=== PATIENT | male | born 1990 | race Caucasian/White ===

== ENCOUNTER 2020-11-06 23:38 | Emergency (ER) | payer OTHER | END 2020-11-07 04:00 | disposition home or self-care (01) | LOC: FER 23:38 | DX: S01.81XA Laceration without foreign body of other part of head, initial encounter (principal); S05.10XA Contusion of eyeball and orbital tissues, unspecified eye, initial encounter; F17.210 Nicotine dependence, cigarettes, uncomplicated; V48.5XXA Car driver injured in noncollision transport accident in traffic accident, initial encounter; Y92.89 Other specified places as the place of occurrence of the external cause | CPT/HCPCS: 70450; 70486; 72125 ==

== ENCOUNTER 2021-07-26 20:34 | Emergency (ER) | payer OTHER | END 2021-07-26 21:12 | disposition CLEPR | LOC: FER 20:34 | DX: S61.012A Laceration without foreign body of left thumb without damage to nail, initial encounter (principal); F17.200 Nicotine dependence, unspecified, uncomplicated; Z23 Encounter for immunization; Y35.893A Legal intervention involving other specified means, suspect injured, initial encounter | CPT/HCPCS: 90471; 90715 ==